=== PATIENT | male | born 1965 | race Caucasian/White ===

== ENCOUNTER 2019-11-13 07:38 | Inpatient (IN) | payer BC ==
[2019-11-13] MEDS ORDERED: SODIUM CHLORIDE 0.9% 1,000 ML IV STA ×2 (07:58)
[2019-11-13] MEDS ORDERED: ASPIRIN 81 MG PO STA (07:58)
--- NOTE | 2019-11-13 08:01 | ED ---
Chest Pain HPI <Romel Reynoso - Last Filed: 11/13/19 10:38> - General Source: patient, RN notes reviewed, old records reviewed Mode of arrival: wheelchair Limitations: no limitations <Alejandra Hartley - Last Filed: 11/13/19 10:42> - General Chief Complaint: Chest Pain Stated Complaint: chest pain Time Seen by Provider: 11/13/19 07:49 - History of Present Illness Initial Comments: Got is a 54-year-old male who presents emergency Department today with complaints of chest discomfort, some nausea and episodes of diaphoresis intermittently since Monday. Patient initially thought the symptoms related to GI discomfort related to eating chili on Monday. Patient reports that all day Monday he was feeling very tired, and somewhat short of breath. He denies any cough. Patient states that he is a nonsmoker. He does have a history of hypertension. He's had no previous cardiac history. Patient reports that he's had no recent fevers or chills. He states that he has had an episode of some shooting pain down the left arm and pain between the shoulder blades as well. Patient reports that he is feeling better at this time compared to how he felt on Monday. He is encouraged to be evaluated by his family. (Alejandra Hartley) - Related Data Home Medications Medication Instructions Recorded Confirmed Allopurinol [Zyloprim] 100 mg PO DAILY 11/13/19 11/13/19 Lisinopril [Prinivil] 5 mg PO DAILY 11/13/19 11/13/19 Allergies Allergy/AdvReac Type Severity Reaction Status Date / Time No Known Allergies Allergy Verified 11/13/19 08:35 Review of Systems ROS Other: All systems not noted in ROS Statement are negative. <Romel Reynoso - Last Filed: 11/13/19 10:38> ROS Other: All systems not noted in ROS Statement are negative. <Alejandra Hartley - Last Filed: 11/13/19 10:42> ROS Statement: Those systems with pertinent positive or pertinent negative responses have been documented in the HPI. EKG Findings - EKG Comments: EKG Findings:: EKG performed at 7:51 AM shows sinus tachycardia, nonspecific ST and T wave abnormality. Abnormal EKG. Ventricular rate of 102 bpm. Verbal is 154 ms. QS duration has 76 ms. QT QTc is 3:30/4:30 milliseconds. <Alejandra Hartley - Last Filed: 11/13/19 10:42> Past Medical History Past Medical History: Hypertension Additional Past Medical History / Comment(s): gout History of Any Multi-Drug Resistant Organisms: None Reported Past Surgical History: Hernia Repair, Orthopedic Surgery Past Psychological History: No Psychological Hx Reported Smoking Status: Never smoker Past Alcohol Use History: None Reported Past Drug Use History: None Reported <Alejandra Hartley - Last Filed: 11/13/19 10:42> General Exam Limitations: no limitations <Alejandra Hartley - Last Filed: 11/13/19 10:42> - General Exam Comments Initial Comments: 54-year-old male. Alert and oriented 3. No significant distress. General: Well appearing, well nourished, in no distress. Oriented x 3, normal mood and affect . Ambulating without difficulty. Skin: Good turgor, no rash, unusual bruising or prominent lesions Hair: Normal texture and distribution. HEENT: Head: Normocephalic, atraumatic, no visible or palpable masses, depressions, or scaring. Eyes: Visual acuity intact, conjunctiva clear, sclera non-icteric, EOM intact, PERRL. Ears: EACs clear, TMs translucent & cone of light visualized. hearing intact. Nose: No external lesions, mucosa non-inflamed, septum and turbinates normal Mouth: Mucous membranes moist, no mucosal lesions. Teeth/Gums: No obvious caries or periodontal disease. No gingival inflammation or significant resorption. Pharynx: Mucosa non-inflamed, no tonsillar hypertrophy or exudate Neck: Supple, without lesions, bruits, or adenopathy, thyroid non-enlarged and non-tender Heart: No cardiomegaly or thrills; regular rate and rhythm, no murmur or gallop Lungs: Clear to auscultation and percussion Abdomen: Bowel sounds normal, no tenderness, organomegaly, masses, or hernia Musculoskeletal: Normal gait and station. No misalignment, asymmetry, crepitation, defects, tenderness, masses, effusions, decreased range of motion, instability, atrophy or abnormal strength or tone in the head, neck, spine, ribs, pelvis or extremities. Neurologic: CN 2-12 normal. Sensation to pain, touch, and proprioception normal. DTRs normal in upper and lower extremities. No pathologic reflexes. Psychiatric: Oriented X3, intact recent and remote memory, judgment and insight, normal mood and affect. (Alejandra Hartley) Course <Romel Reynoso - Last Filed: 11/13/19 10:38> Vital Signs 11/13/19 11/13/19 11/13/19 07:42 08:30 08:59 Temperature 99.0 F 99.2 F Pulse Rate 119 H 100 99 Respiratory 18 19 18 Rate Blood Pressure 139/83 140/87 104/80 O2 Sat by Pulse 96 94 L 95 Oximetry 11/13/19 10:00 Temperature Pulse Rate 97 Respiratory 20 Rate Blood Pressure 108/85 O2 Sat by Pulse 93 L Oximetry - Reevaluation(s) Reevaluation #1: 11/13/19 10:38 Patient reevaluated and reexamined by myself, Dr. Reynoso. Patient resting comfortably in bed, discomfort only 1/10 at this time. Results and x-ray and EKG reviewed. I agree with the findings. This includes diagnostic interpretation. And treatment plan. Patient updated. Case was also discussed with Dr. Gomez, who will come evaluate patient. Case was also discussed with Dr. Holloway, who will admit covering for Dr. Eastman. (Romel Reynoso) Chest Pain MDM <Alejandra Hartley - Last Filed: 11/13/19 10:42> - MDM [id number] male presents emergency department today with complaints of chest pain, fatigue nausea and episodes of diaphoresis and shooting pain down the left arm. Symptoms were significant on Monday and have diminished somewhat since then. He is encouraged to be evaluated by family members. Patient's EKG was reviewed, there is some concern for some T-wave changes in inferior leads. Patient labs were reviewed and he has a significantly elevated troponin of 13.4. Likely the Patient had an MRI on Monday. I discussed the case with Dr. Reynoso also examined the Patient. Patient was initiated on heparin. Patient case was discussed with Dr. Holloway who will admit for Dr. Eastman and Dr. Gomez bioprocess engineer will be in the emergency department to evaluate Patient. Chest x-rays negative for any acute cardiopulmonary process. (Alejandra Hartley) Critical Care Time Critical Care Time: Yes Total Critical Care Time: 35 <Alejandra Hartley - Last Filed: 11/13/19 10:42> Disposition <Romel Reynoso - Last Filed: 11/13/19 10:38> Is patient prescribed a controlled substance at d/c from ED?: No Time of Disposition: 10:42 <Alejandra Hartley - Last Filed: 11/13/19 10:42> Clinical Impression: NSTEMI (non-ST elevated myocardial infarction) Disposition: ADMITTED IP TO THIS HOSP Condition: Stable Instructions (If sedation given, give patient instructions): Chest Pain (ED) Referrals: Niall Selby Jr, [Primary Care Provider] - 1-2 days
--- NOTE | 2019-11-13 08:19 | XR ---
EXAMINATION TYPE: XR chest 2V DATE OF EXAM: 11/13/2019 COMPARISON: None INDICATION: Chest pain TECHNIQUE: Frontal and lateral views of the chest are obtained. FINDINGS: The heart size is normal. The pulmonary vasculature is normal. The lungs are clear. IMPRESSION: 1. No acute pulmonary process.
[2019-11-13 08:42] LABS: Basophils % (A) 0 %; Eosinophils # (A) 0.1 k/uL (0-0.7); Eosinophils % (A) 0 %; HCT 47.7 % (39.0-53.0); HGB 16.3 gm/dL (13.0-17.5); Lymphocytes # (A) 2.4 k/uL (1.0-4.8); Lymphocytes % (A) 15 %; MCH 31.7 pg (25.0-35.0); MCHC 34.2 g/dL (31.0-37.0); MCV 92.6 fL (80.0-100.0); Mean Platelet Volume 7.7; Monocytes # (A) 1.4 k/uL (0-1.0); Monocytes % (A) 8 %; Neutrophils # (A) 12.6 k/uL (1.3-7.7); Neutrophils % (A) 75 %; Platelet Count 278 k/uL (150-450); RBC 5.15 m/uL (4.30-5.90); RDW 12.8 % (11.5-15.5); WBC 16.7 k/uL (3.8-10.6)
[2019-11-13 08:54] LABS: ALT 49 U/L (4-49); AST 166 U/L (17-59); African American GFR (CKD) >90 (>60 ml/min/1.73 sqM); Albumin 4.8 g/dL (3.5-5.0); Alkaline Phosphatase 87 U/L (38-126); Amylase 55 U/L (30-110); Anion Gap 9 mmol/L; Blood Urea Nitrogen 13 mg/dL (9-20); Calcium 9.5 mg/dL (8.4-10.2); Carbon Dioxide 25 mmol/L (22-30); Chloride 100 mmol/L (98-107); Glucose 127 mg/dL (74-99); Magnesium 1.8 mg/dL (1.6-2.3); Non-African American GFR(CKD) >90 (>60 ml/min/1.73 sqM); Potassium 4.7 mmol/L (3.5-5.1); Sodium 134 mmol/L (137-145); Total Bilirubin 1.5 mg/dL (0.2-1.3); Total Protein 8.2 g/dL (6.3-8.2)
[2019-11-13 08:57] LABS: D-Dimer 0.58 mg/L FEU (<0.60); INR 0.9 (<1.2); Prothrombin Time 9.8 sec (9.0-12.0)
[2019-11-13 08:58] LABS: Partial Thromboplastin Time 23.8 sec (22.0-30.0)
[2019-11-13] MEDS ORDERED: HEPARIN SODIUM,PORCINE 5,000 UNIT/ML 1 ML VIAL IV ONE (09:59)
[2019-11-13] MEDS ORDERED: HEPARIN SODIUM,PORCINE 5,000 UNIT/ML 1 ML VIAL IV PRN (09:59)
[2019-11-13] MEDS ORDERED: HEPARIN SOD,PORK IN 0.45% NACL 25,000 UNIT in 0.45% NACL 1 250ML.BAG IV SCH (10:00)
[2019-11-13] MEDS ORDERED: MORPHINE SULFATE 4 MG/ML SYRINGE IVP STA (10:28)
[2019-11-13] MEDS ORDERED: NALOXONE 0.4 MG/ML 1 ML VIAL IV PRN (10:42)
[2019-11-13] MEDS ORDERED: NITROGLYCERIN SL TABS 0.4 MG TAB SUBLINGUAL PRN ×3 (10:44→15:29)
[2019-11-13] MEDS ORDERED: MORPHINE SULFATE 4 MG/ML SYRINGE IV PRN (10:44)
[2019-11-13] MEDS ORDERED: SODIUM CHLORIDE 0.9% 1,000 ML in EMPTY BAG 1 BAG IV ONE (11:40)
[2019-11-13] MEDS ORDERED: ALPRAZolam 0.5 MG TAB PO PRN (11:40)
[2019-11-13] MEDS ORDERED: ATORVASTATIN 80 MG TAB PO STA (11:40)
[2019-11-13] MEDS ORDERED: ASPIRIN 325 MG TAB PO STA (11:40)
[2019-11-13] MEDS ORDERED: ALPRAZolam 0.25 MG TAB PO PRN (11:40)
[2019-11-13] MEDS: METOPROLOL TARTRATE 25 MG TAB PO SCH ×2 (12:30→20:13)
[2019-11-13] MEDS ORDERED: IV FLUID CONTINUATION 500 ML IV ONE (13:15)
--- NOTE | 2019-11-13 13:27 | P.HPIM ---
History of Present Illness H&P Date: 11/13/19 Chief Complaint: Chest pain 54-year-old gentleman with history of gastroesophageal reflux disease, hypertension, gout, presented to the ER with chest pain. Patient states Monday night he consumed chili, developing heartburn by the next morning. Reports left-sided chest pain, with radiation down left arm with tingling of left hand accompanied by shortness of breath, diaphoresis and nausea. Denies cough fever or chills. Reports left chest pain has been fluctuating on and off since Monday morning. Troponin 13.4 on admission. EKG reporting sinus tachycardia and nonsp ecific ST and T-wave abnormalities, inferior leads. T-max 99.2, WBC 16.7, mild hypertension. Magnesium and potassium within normal limits. MCV 92.6, T bili 1.5, AST 166, BNP 845. Chest x-ray reporting no acute pulmonary process. Based on IV heparin drip, IV fluid hydration. Evaluated by cardiology and patient is scheduled for cardiac catheterization. Review of Systems ROS Other: All systems not noted in ROS Statement are negative. ROS Statement: Those systems with pertinent positive or pertinent negative responses have been documented in the HPI. Past Medical History Past Medical History: Hypertension Additional Past Medical History / Comment(s): gout History of Any Multi-Drug Resistant Organisms: None Reported Past Surgical History: Hernia Repair, Orthopedic Surgery Past Psychological History: No Psychological Hx Reported Smoking Status: Never smoker Past Alcohol Use History: None Reported Past Drug Use History: None Reported - Past Family History Father Family Medical History: Diabetes Mellitus Additional Family Medical History / Comment(s): Father is . Mother Family Medical History: Cancer Additional Family Medical History / Comment(s): Mother from cancer-pt does not know type. Medications and Allergies Home Medications Medication Instructions Recorded Confirmed Type Allopurinol [Zyloprim] 100 mg PO DAILY 11/13/19 11/13/19 History Lisinopril [Prinivil] 5 mg PO DAILY 11/13/19 11/13/19 History Allergies Allergy/AdvReac Type Severity Reaction Status Date / Time No Known Allergies Allergy Verified 11/13/19 08:35 Physical Exam Vitals: Vital Signs Temp Pulse Resp BP Pulse Ox 11/13/19 11:14 101 H 20 131/89 95 11/13/19 11:12 101 H 20 131/89 95 11/13/19 10:00 97 20 108/85 93 L 11/13/19 08:59 99.2 F 99 18 104/80 95 11/13/19 08:30 100 19 140/87 94 L 11/13/19 07:42 99.0 F 119 H 18 139/83 96 Intake and Output 11/12/19 11/13/19 11/13/19 22:59 06:59 14:59 Other: Weight 113.398 kg PHYSICAL EXAM: VITAL SIGNS: [As above] GENERAL: Sitting up in bed, no acute distress HEENT: Conjunctivae normal. eyes normal. Oral mucosa dry NECK: No JVD. No thyroid enlargement. No LNs CARDIOVASCULAR: S1, S2 regular.. No murmur RESPIRATION: Breath sounds diminished in the bases. No rhonchi or crackles. No bronchial breathing. ABDOMEN: Soft, nontender . No guarding. no masses palpable. No ascites, No hepatosplenomegaly.Bowel sounds heard. LEGS: No edema. no swelling PSYCHIATRY: Alert and oriented X3, mood and affect normal. NERVOUS SYSTEM: Cranial N 2-12 grossly normal. Moves all 4 limbs. Diffuse weakness No focal deficits. Strength and sensation grossly intact.. Skin: no rash Lymphatic system. No LN neck axilla. Results CBC & Chem 7: 11/13/19 08:00 11/13/19 08:00 Labs: Abnormal Lab Results - Last 24 Hours (Table) 11/13/19 11/13/19 11/13/19 Range/Units 08:00 08:00 08:00 WBC 16.7 H (3.8-10.6) k/uL Neutrophils # 12.6 H (1.3-7.7) k/uL Monocytes # 1.4 H (0-1.0) k/uL Sodium 134 L (137-145) mmol/L Glucose 127 H (74-99) mg/dL Total Bilirubin 1.5 H (0.2-1.3) mg/dL AST 166 H (17-59) U/L Troponin I 13.400 H* (0.000-0.034) ng/mL Assessment and Plan Assessment: Acute NSTEMI, cardiac catheterization pending Hypertension History of gout Plan: Continue on current medication regime ,monitoring and symptomatic treatment. Evaluated by cardiology and patient is scheduled for cardiac catheterization today. Lipid panel ordered. Home meds have been reviewed and resumed accordingly. Follow closely with cardiology. The impression and plan of care has been dictated as directed. : I performed a history and examination of this patient, discussed the same with the dictator. I agree with the dictator's note ,documented as a scribe. Any additional findings or plans will be noted.
[2019-11-13] MEDS ORDERED: VERAPAMIL 2.5 MG/ML 2 ML AMP ONE (13:56)
[2019-11-13] MEDS ORDERED: LIDOCAINE 1% INJ 10MG/ML (20 ML MDV) ONE (13:57)
[2019-11-13 13:58] LABS: Appearance,Urine Clear (Clear); Bilirubin,Urine Negative (Negative); Blood,Urine Trace (Negative); Color,Urine Yellow; Glucose,Urine (UA) Negative (Negative); Ketones,Urine Negative (Negative); Leukocyte Esterase,Urine Negative (Negative); Mucus,Urine Many /hpf; Nitrite,Urine Negative (Negative); Protein,Urine 1+ (Negative); RBC,Urine 1 /hpf (0-5); Specific Gravity,Urine 1.027 (1.001-1.035); Squamous Epithelial Cell,Urine <1 /hpf (0-4); Urobilinogen,Urine <2.0 mg/dL (<2.0); WBC,Urine <1 /hpf (0-5)
[2019-11-13 13:59] LABS: Cholesterol 225 mg/dL (<200); HDL Cholesterol 52 mg/dL (40-60); LDL Cholesterol,Calculated 149 mg/dL (0-99); Triglycerides 119 mg/dL (<150)
[2019-11-13] MEDS ORDERED: fentaNYL (PF) 50 MCG/ML 2 ML AMP ONE (14:08)
[2019-11-13] MEDS ORDERED: fentaNYL (PF) 50 MCG/ML 2 ML AMP IV ONE (14:20)
[2019-11-13] MEDS ORDERED: LIDOCAINE 1% INJ 10MG/ML (20 ML MDV) SQ ONE (14:22)
[2019-11-13] MEDS ORDERED: VERAPAMIL SYRINGE (5 MG/10 ML) INTRAARTER ONE (14:24)
[2019-11-13] MEDS ORDERED: TICAGRELOR 90 MG TAB ONE (14:29)
[2019-11-13] MEDS ORDERED: BIVALIRUDIN BOLUS 250 MG/50 ML IV ONE (14:31)
[2019-11-13] MEDS ORDERED: BIVALIRUDIN 250 MG in SODIUM CHLORIDE 0.9% 50 ML IV ONE (14:32)
[2019-11-13] MEDS ORDERED: TICAGRELOR 90 MG TAB PO ONE (14:33)
[2019-11-13] MEDS ORDERED: IOPAMIDOL-370 125ML BTL INJ ONE (14:44)
[2019-11-13] MEDS ORDERED: NITROGLYCERIN 1000MCG/10ML SYRINGE INTRACORON ONE (14:46)
[2019-11-13] MEDS ORDERED: IOPAMIDOL-370 100ML BTL INJ ONE ×2 (15:00→15:11)
[2019-11-13] MEDS ORDERED: RX INFO: IV CONTRAST WAS GIVEN 1 EACH MISC MISCELLANE PRN (15:29)
[2019-11-13] MEDS ORDERED: ZOLPIDEM 5 MG TAB PO PRN (15:29)
[2019-11-13] MEDS ORDERED: MAG HYDROX/AL HYDROX/SIMETH 30 ML CUP PO PRN (15:29)
[2019-11-13] MEDS ORDERED: ATROPINE SULFATE 0.1 MG/ML 10ML SYRINGE IV PRN (15:29)
[2019-11-13] MEDS ORDERED: SODIUM CHLORIDE 0.9% 1,000 ML IV SCH (15:30)
--- NOTE | 2019-11-13 15:41 | CONS ---
CONSULTATION Mr. Carrillo is a 54-year-old male with known history of hypertension. No prior history of cardiac disease who presented to the emergency room with symptoms of chest and arm discomfort. His discomfort started on Monday, associated on Monday evening with mild nausea, not feeling well and shortness of breath but the symptoms persisted. Came into the emergency room and was noted to have a troponin elevated at 13.4. The patient is active physically, works in construction. Has no prior cardiac history. He denies any history of myocardial infarction or angina pectoris. He denies any chronic PND, orthopnea, or peripheral edema. No palpitation or syncope. His coronary risk factors are remarkable for history of hypertension. He is nondiabetic. His lipid profile is not available and he is nonsmoker. MEDICATIONS: At home include lisinopril 5 mg daily and allopurinol 10 mg daily. REVIEW OF SYSTEMS: RESPIRATORY SYSTEM: He has no history of chronic cough or wheezing. GI SYSTEM: History of nausea and vomiting. No GI bleeding. SYSTEM: No dysuria or hematuria. NERVOUS SYSTEM: No stroke or seizure. PHYSICAL EXAMINATION: A 54-year-old male, alert, oriented, in no apparent distress. Blood pressure 131/80 with a heart rate in the high 90s low 100s. HEAD: Normocephalic. EYES: Sclerae nonicteric. NECK: Good upstroke, no bruit, no jugular venous distention. LUNGS: Clear to auscultation. HEART: Regular rate and rhythm. S1, S2. No S3. No rub or gallop. ABDOMEN: Soft, nontender, positive bowel sounds, no organomegaly. EXTREMITIES: No edema, intact pulses. LAB DATA: Revealed BUN and creatinine 13 and 0.8. Troponin 13.4. Total bilirubin 1.5. NT proBNP of 845, potassium 4.7, hemoglobin of 16.3. EKG revealed a sinus mechanism, normal axis and intervals, small borderline QS in lead 3. Chest x-ray shows no acute infiltrate. IMPRESSION: 1. Non ST-segment elevation myocardial infarction, could be in the inferior wall territory. 2. History of hypertension. RECOMMENDATION: His symptoms started for about 36-48 hours ago, but he continues to have discomfort. In view of that, I recommended to proceed with cardiac catheterization to further assess his status and guide his treatment. The rationale behind the procedures, risks, and complication were discussed with the patient who is in full understanding and agreement. I will add to his regimen a beta elena. I will obtain echocardiogram and depending on his findings, further recommendation will be made. Thank you for this consult. Will follow with you. JAMIE / LAWRENCEN: [id number] /
--- NOTE | 2019-11-13 17:32 | CC ---
CARDIAC CATHETERIZATION REPORT Mr. Carrillo is a 54-year-old male with history of hypertension who presented with symptoms of chest discomfort. His discomfort started on Monday and persisted on presentation to the emergency room. He had minimal ST-segment changes inferiorly, but he had a troponin of 13. Because of the persistent symptoms, recommendation made regarding cardiac catheterization. The procedures, risks, and complications were discussed with the patient who is in full understanding and agreement. PROCEDURE DETAILS: Patient was brought to the mechanical shop laborer in a fasting state after receiving fentanyl and Benadryl and achieving moderate conscious sedated state. Using Xylocaine anesthesia and Seldinger technique, a 6-Djiboutian sheath was introduced in the right radial artery. Selective right and left coronary angiography performed using 5-Djiboutian 3.5 bend right and left Judkin's catheter. Multiple views of the coronary arteries including hemiaxial views obtained. Following that, 5-Djiboutian tight pigtail catheter was introduced in the left ventricle and pressures were calculated. Following that, catheter removed, images were reviewed. FINDINGS: LEFT MAIN: This is a large-sized vessel bifurcating into left circumflex, left anterior descending artery, left main coronary artery has no evidence of high-grade stenosis. LEFT ANTERIOR DESCENDING ARTERY: This is a large-sized vessel reaching toward the apex with a wraparound the apex segment giving rise to 2 diagonal branches. The first one is large in caliber. The first diagonal branch has a 30% to 40% plaque proximally. The LAD has mild disease in the mid segment of 20%. The rest of the vessel has no high- grade stenosis. LEFT CIRCUMFLEX: This is a small nondominant vessel giving rise to one obtuse marginal branch. The obtuse marginal branch has diffuse intimal disease up to 80% in its course. RIGHT CORONARY ARTERY: This is a large dominant vessel bifurcating distally PDA and posterolateral segment and branches. The PLV is totally occluded with no significant antegrade flow. The PDA has a 95% stenosis in the mid segment. The rest of the vessel has no high-grade stenosis. LEFT VENTRICULOGRAM: Not performed. HEMODYNAMICS: There was no gradient across the aortic valve. The left ventricular end-diastolic pressure was 12-16 mmHg. CONCLUSION: 1. Acutely occluded right PLV. 2. Critical stenosis of the right PDA. 3. Significant stenosis in a small obtuse marginal branch. 4. Mild disease in the LAD. RECOMMENDATIONS: In view of findings and the anatomy, I recommend proceeding with angioplasty and stenting of the right PLV and the PDA. Those findings and recommendations were discussed with the patient who is in full understanding and agreement. MMODL / IJN: [id number] /
--- NOTE | 2019-11-13 17:32 | PTCA ---
PERCUTANEOUSTRANS CORORONARY ANGIOGRAPHY Mr. Carrillo is a 54-year-old male with no history of coronary artery disease who presented with an acute non ST-segment elevation myocardial infarction, underwent cardiac catheterization, was felt totally occluded the right PLV with critical stenosis in the right PDA. Recommendation was made regarding angioplasty and stenting. The procedures, risks, and complication were discussed with the patient who is in full understanding and agreement. PROCEDURE: A 6-Lao FR4 guiding catheter introduced into the system after cannulating the right coronary ostium, a 0.014 balanced medium weight J-wire with the help of a straight Fine Cross were used to cross the total occlusion. Subsequently a 2.0 x 12 mm Trek balloon was advanced and 2 inflation at 8 atmospheres was done. Following that, the balloon was removed and another 0.014 balanced medium weight J-wire was advanced into the PLV in the first branch. Following that, a 2.5 x 15 mm Xience stent was deployed, postdilated at 16 atmospheres after removing the balloon and after images were obtained repeated. Those images reveal stable successful stenting. At that point, one of the balanced medium weight J-wire was advanced in the PDA, positioned distally, then a 2.0 x 12 mm balloon was advanced, one inflation 8 atmospheres was done. Following that, the balloon was removed and a 2.25 x 15 mm Xience Rose stent was deployed post dilated to 16 atmospheres. After the last inflation, after appropriate wait, the balloon and the guidewire were withdrawn back in the guiding catheter. Images were obtained and repeated. Those images reveal stable successful stenting. At that point, the guiding catheter, the balloon and the guidewire were removed. The sheath was removed, hemostasis was obtained with deployment of a TR band. There was no immediate complication. Patient is returned to his room in stable condition. Of note, patient had EKG changes with the inflation of the PDA. He was pain-free at the end of the procedure. He received Angiomax per protocol as well as oral loading dose of Brilinta. RESULTS: 1. Successful stenting of the totally occluded right PLV with reduction of stenosis from 100% to 0%. 2. Successful stenting of the right PDA with reduction of stenosis from a 95% to 0%. RECOMMENDATION: Patient to be continued on aspirin, Brilinta, beta elena, SRINIVAS and statin. The importance of dual antiplatelet treatment were discussed with the patient and his family and they are in full understanding and agreement. Duration of procedure is 53 minutes. MMRADHAL / IJN: [id number] /
--- NOTE | 2019-11-13 17:32 | LTR ---
DATE OF SERVICE: 11/13/2019 RE: Robinson Carrillo Dear Dr. Selby; I had the pleasure to perform cardiac catheterization on Mr. Carrillo at [facility] on November 13, 2019 and a full copy of the procedure note will be forwarded to you. In brief, he was found to have a totally occluded right PLV and a critical stenosis in the right PDA, underwent successful stenting of both vessels. He has disease in a small obtuse marginal branch and he will be evaluated depending on his symptoms to see if any intervention will be needed. Thank you again for allowing me to participate in this patient's care. Please feel free to call for any questions. Sincerely yours, Linda Gomez MD MMANGELA / CAROLE: [id number] /
[2019-11-13] MEDS: PANTOPRAZOLE 40 MG/10 ML VIAL IVP SCH (17:37)
[2019-11-13] MEDS: TICAGRELOR 90 MG TAB PO SCH (20:13)
[2019-11-14 05:18] LABS: Basophils % (A) 0 %; Eosinophils % (A) 0 %; HCT 43.9 % (39.0-53.0); HGB 14.8 gm/dL (13.0-17.5); Lymphocytes # (A) 2.2 k/uL (1.0-4.8); Lymphocytes % (A) 14 %; MCH 31.7 pg (25.0-35.0); MCHC 33.7 g/dL (31.0-37.0); MCV 94.1 fL (80.0-100.0); Mean Platelet Volume 7.6; Monocytes # (A) 1.2 k/uL (0-1.0); Monocytes % (A) 8 %; Neutrophils # (A) 12.1 k/uL (1.3-7.7); Neutrophils % (A) 76 %; Platelet Count 244 k/uL (150-450); RBC 4.67 m/uL (4.30-5.90); RDW 12.9 % (11.5-15.5); WBC 15.9 k/uL (3.8-10.6)
[2019-11-14 05:52] LABS: African American GFR (CKD) >90 (>60 ml/min/1.73 sqM); Anion Gap 7 mmol/L; Blood Urea Nitrogen 14 mg/dL (9-20); Calcium 8.8 mg/dL (8.4-10.2); Carbon Dioxide 24 mmol/L (22-30); Chloride 102 mmol/L (98-107); Cholesterol 178 mg/dL (<200); Glucose 115 mg/dL (74-99); HDL Cholesterol 46 mg/dL (40-60); LDL Cholesterol,Calculated 114 mg/dL (0-99); Magnesium 2.1 mg/dL (1.6-2.3); Non-African American GFR(CKD) >90 (>60 ml/min/1.73 sqM); Potassium 4.4 mmol/L (3.5-5.1); Sodium 133 mmol/L (137-145); Triglycerides 92 mg/dL (<150)
[2019-11-14] MEDS ORDERED: ASPIRIN 325 MG TAB PO SCH (09:00)
--- NOTE | 2019-11-14 09:38 | PN ---
PROGRESS NOTE Mr. Carrillo is a 54-year-old male who presented yesterday with symptoms of chest discomfort going on for the last 2 days. He was noted to have an elevation of his troponin on presentation, underwent cardiac catheterization, was found to have a totally occluded right PLV and critical stenosis in the right PDA, underwent stenting of both vessels. He is doing well this morning. He denies any chest pain, his breathing has been stable. He denies any dizziness or palpitation. He denies any nausea. He has been ambulating without difficulty. He continues to be on aspirin once a day, Brilinta 90 mg twice a day, Lipitor 80 mg daily, lisinopril 5 mg daily, metoprolol tartrate 25 mg twice a day. PHYSICAL EXAMINATION: Blood pressure 122/60 with a heart rate in the 80s to 90s. LUNGS: Clear. HEART: Regular rate and rhythm, S1, S2. No S3. No rub. ABDOMEN: Soft, nontender. EXTREMITIES: No edema. Right radial pulse intact. LAB DATA: Revealed a troponin peak of 50.3. His BUN and creatinine are 14 and 0.85, potassium 4.4, hemoglobin 14.8. His EKG is consistent with inferior myocardial infarction. 1. Status post inferior myocardial infarction and stenting of the right PLV and right PDA. 2. Significant disease in a small obtuse marginal branch. 3. Hypertension. RECOMMENDATION: I will review the results of his echocardiogram. Increase his level activity and if he is stable, I would expect he should be able to be discharged home tomorrow. MMODL / IJN: [id number] /
[2019-11-14] MEDS: METOPROLOL TARTRATE 25 MG TAB PO SCH ×2 (10:13→20:37)
[2019-11-14] MEDS: ASPIRIN 81 MG PO SCH (10:13)
[2019-11-14] MEDS: LISINOPRIL 5 MG TAB PO SCH (10:13)
[2019-11-14] MEDS: ATORVASTATIN 80 MG TAB PO SCH (10:13)
[2019-11-14] MEDS: TICAGRELOR 90 MG TAB PO SCH ×2 (10:14→20:38)
[2019-11-14] MEDS: PANTOPRAZOLE 40 MG/10 ML VIAL IVP SCH (10:14)
--- NOTE | 2019-11-14 10:44 | ECHOF ---
Referral Reason:wy MEASUREMENTS -------- HEIGHT: 182.9 cm WEIGHT: 113.4 kg BP: 131/89 RVIDd: 3.3 cm (< 3.3) IVSd: 1.3 cm (0.6 - 1.1) LVIDd: 5.0 cm (3.9 - 5.3) LVPWd: 1.2 cm (0.6 - 1.1) IVSs: 1.8 cm LVIDs: 3.5 cm LVPWs: 1.9 cm LA Diam: 2.9 cm (2.7 - 3.8) LAESV Index (A-L): 18.84 ml/m Ao Diam: 3.7 cm (2.0 - 3.7) AV Cusp: 2.3 cm (1.5 - 2.6) MV EXCURSION: 17.459 mm (> 18.000) MV EF SLOPE: 66 mm/s (70 - 150) EPSS: 1.0 cm MV E Ramakrishna: 0.63 m/s MV DecT: 206 ms MV A Ramakrishna: 0.93 m/s MV E/A Ratio: 0.68 FINDINGS -------- This was a technically difficult study with suboptimal views. The left ventricular size is normal. There is mild concentric left ventricular hypertrophy. Overa ll left ventricular systolic function is low-normal with, an EF between 50 - 55 %. The right ventricle is mildly enlarged. Normal LA size by volume 22+/-6 ml/m2. The right atrium is normal in size. 5.0mg of Lumason was utilized for enhancement of images Interatrial and interventricular septum intact. The aortic valve is trileaflet and appears structurally normal. There is trace mitral regurgitation. The tricuspid valve appears structurally normal. Trace/mild (physiologic) pulmonic regurgitation. The aortic root size is normal. IVC Not well visulized. There is no pericardial effusion. CONCLUSIONS -------- 1. This was a technically difficult study with suboptimal views. 2. The left ventricular size is normal. 3. There is mild concentric left ventricular hypertrophy. 4. Overall left ventricular systolic function is low-normal with, an EF between 50 - 55 %. 5. The right ventricle is mildly enlarged. 6. Normal LA size by volume 22+/-6 ml/m2. 7. The right atrium is normal in size. 8. 5.0mg of Lumason was utilized for enhancement of images 9. Interatrial and interventricular septum intact. 10. The aortic valve is trileaflet and appears structurally normal. 11. There is trace mitral regurgitation. 12. The tricuspid valve appears structurally normal. 13. Trace/mild (physiologic) pulmonic regurgitation. 14. The aortic root size is normal. 15. IVC Not well visulized. 16. There is no pericardial effusion. SAS ARCHITECT: BELLO Salazar
--- NOTE | 2019-11-14 12:45 | P.PN ---
Subjective Progress Note Date: 11/14/19 54-year-old gentleman with history of gastroesophageal reflux disease, hypertension, gout, presented to the ER with chest pain. Patient states Monday night he consumed chili, developing heartburn by the next morning. Reports left-sided chest pain, with radiation down left arm with tingling of left hand a ccompanied by shortness of breath, diaphoresis and nausea. Denies cough fever or chills. Reports left chest pain has been fluctuating on and off since Monday morning. Troponin 13.4 on admission. EKG reporting sinus tachycardia and nonspecific ST and T-wave abnormalities, inferior leads. T-max 99.2, WBC 16.7, mild hypertension. Magnesium and potassium within normal limits. MCV 92.6, T bili 1.5, AST 166, BNP 845. Chest x-ray reporting no acute pulmonary process. Based on IV heparin drip, IV fluid hydration. Evaluated by cardiology and patient is scheduled for cardiac catheterization. Status post cardiac catheterization with successful stenting of the right PLV and right PDA; significant disease obtuse marginal branch also reported. Tolerated procedure well. Creatinine 0.85. Echo reporting normal LV function, EF 50-55%. Denies chest pain, palpitations or shortness of breath. No nausea or vomiting.VSS. Objective - Vital Signs Vital signs: Vital Signs Temp 98.6 F 11/14/19 11:30 Pulse 98 11/14/19 11:31 Resp 16 11/14/19 11:31 BP 132/82 11/14/19 11:30 Pulse Ox 96 11/14/19 11:30 Intake & Output 11/13/19 11/14/19 11/14/19 18:59 06:59 18:59 Intake Total 599.997 580 Balance 599.997 580 Weight 113.398 kg 113.4 kg Intake: IV 346 20 Invasive Line 1 20 Intake, IV Titration 28.997 Amount Heparin Sod,Pork in 0.45% 28.997 NaCl 25,000 unit In 0.45 % NaCl 1 250ml.bag @ 8. 818 UNITS/KG/HR 9.999 mls /hr IV .Q24H CYNDI Rx#: [id number] Oral 225 560 Other: Voiding Method Urinal Urinal Urinal # Voids 1 1 2 - Exam PHYSICAL EXAM: VITAL SIGNS: [As above] GENERAL: Sitting up in chair, no acute distress HEENT: Conjunctivae normal. eyes normal. Oral mucosa dry NECK: No JVD. No thyroid enlargement. No LNs CARDIOVASCULAR: S1, S2 regular. No murmur RESPIRATION: Breath sounds diminished in the bases. No rhonchi or crackles. No bronchial breathing. ABDOMEN: Soft, nontender . No guarding. no masses palpable. Bowel sounds heard. LEGS: No edema. no swelling PSYCHIATRY: Alert and oriented X3, mood and affect normal. NERVOUS SYSTEM: Cranial N 2-12 grossly normal. Moves all 4 limbs. No focal deficits. Strength and sensation grossly intact.. Skin: no rash - Labs CBC & Chem 7: 11/14/19 03:40 11/14/19 03:40 Labs: Abnormal Lab Results - Last 24 Hours (Table) 11/13/19 11/13/19 11/13/19 Range/Units 08:00 13:10 16:02 WBC (3.8-10.6) k/uL Neutrophils # (1.3-7.7) k/uL Monocytes # (0-1.0) k/uL Sodium (137-145) mmol/L Glucose (74-99) mg/dL Troponin I 50.300 H* (0.000-0.034) ng/mL Cholesterol 225 H (<200) mg/dL LDL Cholesterol, Calc 149 H (0-99) mg/dL Urine Protein 1+ H (Negative) Urine Blood Trace H (Negative) Urine Mucus Many H (None) /hpf 11/13/19 11/14/19 11/14/19 Range/Units 22:19 03:40 03:40 WBC 15.9 H (3.8-10.6) k/uL Neutrophils # 12.1 H (1.3-7.7) k/uL Monocytes # 1.2 H (0-1.0) k/uL Sodium (137-145) mmol/L Glucose (74-99) mg/dL Troponin I 34.100 H* 23.800 H* (0.000-0.034) ng/mL Cholesterol (<200) mg/dL LDL Cholesterol, Calc (0-99) mg/dL Urine Protein (Negative) Urine Blood (Negative) Urine Mucus (None) /hpf 11/14/19 Range/Units 03:40 WBC (3.8-10.6) k/uL Neutrophils # (1.3-7.7) k/uL Monocytes # (0-1.0) k/uL Sodium 133 L (137-145) mmol/L Glucose 115 H (74-99) mg/dL Troponin I (0.000-0.034) ng/mL Cholesterol (<200) mg/dL LDL Cholesterol, Calc 114 H (0-99) mg/dL Urine Protein (Negative) Urine Blood (Negative) Urine Mucus (None) /hpf Assessment and Plan Assessment: Acute inferior DE, status post cardiac catheterization with stenting of the right PLV and right PDA. Significant disease of small obtuse marginal branch. Hypertension History of gout Plan: Continue on current medication regime ,monitoring and symptomatic treatment. Increase ambulation. Maintained on Brilenta, beta elena, SRINIVAS inhibitor, statin, aspirin. Follow closely with cardiology. Discharge planning in progress for tomorrow pending cardiology final DC recommendations and clearance. The impression and plan of care has been dictated as directed. : I performed a history and examination of this patient, discussed the same with the dictator. I agree with the dictator's note ,documented as a scribe. Any additional findings or plans will be noted.
[2019-11-14 14:08] VITALS: BMI 33.9
[2019-11-15 06:14] LABS: Basophils % (A) 0 %; Eosinophils % (A) 0 %; HCT 45.8 % (39.0-53.0); Lymphocytes # (A) 2.2 k/uL (1.0-4.8); Lymphocytes % (A) 18 %; MCH 30.3 pg (25.0-35.0); MCHC 32.8 g/dL (31.0-37.0); MCV 92.6 fL (80.0-100.0); Mean Platelet Volume 7.6; Monocytes # (A) 0.9 k/uL (0-1.0); Monocytes % (A) 7 %; Neutrophils % (A) 72 %; Platelet Count 260 k/uL (150-450); RBC 4.95 m/uL (4.30-5.90); RDW 12.7 % (11.5-15.5); WBC 12.5 k/uL (3.8-10.6)
[2019-11-15 06:24] LABS: African American GFR (CKD) >90 (>60 ml/min/1.73 sqM); Anion Gap 9 mmol/L; Blood Urea Nitrogen 17 mg/dL (9-20); Carbon Dioxide 23 mmol/L (22-30); Chloride 103 mmol/L (98-107); Glucose 119 mg/dL (74-99); Non-African American GFR(CKD) >90 (>60 ml/min/1.73 sqM); Potassium 4.6 mmol/L (3.5-5.1); Sodium 135 mmol/L (137-145)
[2019-11-15] MEDS: METOPROLOL TARTRATE 25 MG TAB PO SCH (07:43)
[2019-11-15] MEDS: PANTOPRAZOLE 40 MG/10 ML VIAL IVP SCH (07:43)
[2019-11-15] MEDS: TICAGRELOR 90 MG TAB PO SCH (07:43)
[2019-11-15] MEDS: ASPIRIN 81 MG PO SCH (07:43)
[2019-11-15] MEDS: ATORVASTATIN 80 MG TAB PO SCH (07:43)
[2019-11-15] MEDS: LISINOPRIL 5 MG TAB PO SCH (07:43)
[2019-11-15 08:02] VITALS: BP 122/69; PULSE 104; RESP 17; TEMP 98.3
--- NOTE | 2019-11-15 10:08 | PN ---
PROGRESS NOTE Mr. Carrillo is a 54-year-old male who presented with myocardial infarction, underwent stenting of his right PLV and right PDA. He is doing well this morning, ambulating without difficulty. Denying any chest pain. Denies any dizziness, palpitation. He has no further discomfort on the monitor, he is in sinus mechanism without any evidence of tachycardia or bradycardia. His echocardiogram revealed no evidence of significant segmental wall motion abnormality. He continues to be on aspirin once a day, Brilinta 90 mg twice a day, lisinopril 5 mg daily, Lipitor 80 mg daily, metoprolol tartrate 25 mg twice a day. PHYSICAL EXAMINATION: Blood pressure 122/60 with a heart rate in the 80s. LUNGS: Clear. HEART: Regular rate and rhythm, S1, S2. No S3. No rub. ABDOMEN: Soft, nontender. EXTREMITIES: No edema. LAB DATA: Revealed BUN and creatinine 17 and 0.9, hemoglobin of 15. IMPRESSION: 1. Status post myocardial infarction and stenting of the right PLV and PDA. 2. Hypertension. 3. Hyperlipidemia. RECOMMENDATION: Patient should be able to be discharged home today and followed as an outpatient. MMODL / IJN: [id number] /
--- NOTE | 2019-11-15 13:23 | P.DS ---
Providers Date of admission: 11/13/19 10:37 Expected date of discharge: 11/15/19 Attending physician: Chavo Holloway Consults: 11/13/19 10:37 Consult Physician Urgent Consulting Provider: Linda Gomez Consult Reason/Comments: nstemi Do you want consulting provider notified?: Already Contacted 11/13/19 15:29 Consult Physician Routine Consulting Provider: [facility] Consult Reason/Comments: Post Interventional patient Do you want consulting provider notified?: Already Contacted Primary care physician: [facility] Hospital Course: Final Diagnoses: Acute inferior SC, status post cardiac catheterization with stenting of the right PLV and right PDA. Significant disease of small obtuse marginal branch. Hypertension History of gout Hospital course:54-year-old gentleman with history of gastroesophageal reflux disease, hypertension, gout, presented to the ER with chest pain. Patient states Monday night he consumed chili, developing heartburn by the next morning. Reports left-sided chest pain, with radiation down left arm with tingling of left hand accompanied by shortness of breath, diaphoresis and nausea. Denies cough fever or chills. Reports left chest pain has been fluctuating on and off since Monday morning. Troponin 13.4 on admission. EKG reporting sinus tachycardia and nonspecific ST and T-wave abnormalities, inferior leads. T-max 99.2, WBC 16.7, mild hypertension. Magnesium and potassium within normal limits. MCV 92.6, T bili 1.5, AST 166, BNP 845. Chest x-ray reporting no acute pulmonary process. Based on IV heparin drip, IV fluid hydration. Evaluated by cardiology and patient is scheduled for cardiac catheterization. Status post cardiac catheterization with successful stenting of the right PLV and right PDA; significant disease obtuse marginal branch also reported. Tolerated procedure well. Creatinine 0.85. Echo reporting normal LV function, EF 50-55%. Denies chest pain, palpitations or shortness of breath. No nausea or vomiting.VSS. Significant clinical improvement. Cleared by cardiology for discharge. Patient is being discharged home in stable condition with fair prognosis. The impression and plan of care has been dictated as directed. : I performed a history and examination of this patient, discussed the same with the dictator. I agree with the dictator's note ,documented as a scribe. Any additional findings or plans will be noted. Patient Condition at Discharge: Stable Plan - Discharge Summary Discharge Rx Participant: No New Discharge Prescriptions: New Aspirin 81 mg PO DAILY #0 chew Ticagrelor [Brilinta] 90 mg PO BID #180 tab Atorvastatin [Lipitor] 80 mg PO DAILY #90 tab Metoprolol Tartrate [Lopressor] 25 mg PO BID #180 tab Nitroglycerin Sl Tabs [Nitrostat] 0.4 mg SUBLINGUAL Q5M PRN #25 tab PRN Reason: Chest Pain Continue Allopurinol [Zyloprim] 100 mg PO DAILY Lisinopril [Prinivil] 5 mg PO DAILY Discharge Medication List Allopurinol [Zyloprim] 100 mg PO DAILY 11/13/19 [History] Lisinopril [Prinivil] 5 mg PO DAILY 11/13/19 [History] Aspirin 81 mg PO DAILY #0 chew 11/15/19 [Rx] Atorvastatin [Lipitor] 80 mg PO DAILY #90 tab 11/15/19 [Rx] Metoprolol Tartrate [Lopressor] 25 mg PO BID #180 tab 11/15/19 [Rx] Nitroglycerin Sl Tabs [Nitrostat] 0.4 mg SUBLINGUAL Q5M PRN #25 tab 11/15/19 [Rx] Ticagrelor [Brilinta] 90 mg PO BID #180 tab 11/15/19 [Rx] Follow up Appointment(s)/Referral(s): Linda Gomez MD [STAFF PHYSICIAN] - 11/20/19 3:30 pm Niall Selby Jr, DO [Primary Care Provider] - 3 Days Ambulatory/Diagnostic Orders: Complete Blood Count w/diff [LAB.AMB] Time Frame: 3 Days, Location: None Selected Patient Instructions/Handouts: *Surgery [facility] - After Heart Catheterization - Human Resources Specialist Instructions, Heart Attack (DC), Chest Pain (ED), Heart Healthy Diet (ED), Mediterranean Diet (DC) Discharge Disposition: HOME SELF-CARE
== END 2019-11-15 10:03 | disposition home or self-care (01) | DRG 247 ==
LOC: EC 07:38 → 3SCARD 10:37
PROVIDERS: ADMIT Family Medicine; ATTEND Family Medicine
PROC: 4A023N7 Measurement of Cardiac Sampling and Pressure, Left Heart, Percutaneous Approach (ICD-10-PCS; principal; 2019-11-13 16:10)
PROC: 027135Z Dilation of Coronary Artery, Two Arteries with Two Drug-eluting Intraluminal Devices, Percutaneous Approach (ICD-10-PCS; principal; 2019-11-13 16:10)
PROC: B2111ZZ Fluoroscopy of Multiple Coronary Arteries using Low Osmolar Contrast (ICD-10-PCS; principal; 2019-11-13 16:10)
DX: I21.4 Non-ST elevation (NSTEMI) myocardial infarction (principal); I25.10 Atherosclerotic heart disease of native coronary artery without angina pectoris; Z11.59 Encounter for screening for other viral diseases; I10 Essential (primary) hypertension; R00.0 Tachycardia, unspecified; M10.9 Gout, unspecified; E78.5 Hyperlipidemia, unspecified; K21.9 Gastro-esophageal reflux disease without esophagitis; Z79.899 Other long term (current) drug therapy; Z98.890 Other specified postprocedural states; Z83.3 Family history of diabetes mellitus; Z80.9 Family history of malignant neoplasm, unspecified
CPT/HCPCS: 36415; 71046; 80048; 80053; 80061; 81001; 82150; 83690; 83735; 83880; 84484; 85025; 85379; 85610; 85730; 93005; 93306; 93458; 96361; 96365; 96376; 99291

== ENCOUNTER → 2022-03-02 | Outpatient (CLI) | payer BC ==
--- NOTE | 2022-03-02 09:00 | US ---
EXAMINATION TYPE: US abdomen limited DATE OF EXAM: 03/02/2022 COMPARISON: NONE CLINICAL HISTORY: M54.9 mid back pain right side. TECHNIQUE: Multiple sonographic images of the right upper quadrant are obtained. FINDINGS: EXAM MEASUREMENTS: Liver Length: 16.5 cm Gallbladder Wall: 0.17 cm CBD: 0.2 cm Right Kidney: 10.3 x 4.3 x 6.7 cm Pancreas: Echogenic. Tail obscured by overlying bowel gas Liver: Increased attenuation, decreased visualization of vessels suggestive of fatty infiltrate Gallbladder: 1.6cm non mobile echogenic foci within the neck of the gallbladder. Evidence for sonographic Kate's sign: No CBD: Limited Right Kidney: wnl Visualized portion of pancreas shows no worrisome mass or ductal dilatation. Entire pancreas not imag ed due to body habitus and overlying bowel gas. Visualized liver markedly heterogeneously hyperechoic . Evaluation for focal masses suboptimal due to the heterogeneity. There is shadowing 1.6 cm gallston e in the gallbladder neck. No surrounding ascites or abnormal wall thickening. Sonographic Kate sig n negative. No right-sided hydronephrosis. IMPRESSION: Gallstone without ultrasound evidence for acute cholecystitis. Heterogeneous hyperechoic appearance of liver consistent with diffuse fatty infiltration and/or underlying hepatocellular disea se. Patient may benefit with ultrasound elastography or imaging guided random biopsy to further evalu ate.
== END | disposition home or self-care (01) ==
LOC: RADUSWWP 07:55
PROVIDERS: ATTEND Family Medicine
DX: K80.20 Calculus of gallbladder without cholecystitis without obstruction (principal); K76.89 Other specified diseases of liver
CPT/HCPCS: 76705